=== PATIENT | male | born 1945 | race Caucasian/White ===

== ENCOUNTER 2018-01-15 09:55 | Emergency (ER) | payer MEDICARE ==
[2018-01-15 09:56] VITALS: BMI 29.0
[2018-01-15 10:09] VITALS: BP 151/85; RESP 18; O2SAT 99
--- NOTE | 2018-01-15 10:15 | ED PDOC ---
Arrival/HPI - General Chief Complaint: Allergic Reaction Time Seen by Provider: 01/15/18 10:12 Historian: Patient Past Medical History - Provider Review Nursing Documentation Reviewed: Yes - Infectious Disease Hx of Infectious Diseases: None - Cardiac Hx Hypertension: Yes - Neurological Hx Paralysis: No - Endocrine/Metabolic Hx Diabetes Mellitus Type 2: Yes - Hematological/Oncological Hx Blood Transfusions: No Hx Blood Transfusion Reaction: No - Musculoskeletal/Rheumatological Hx Musculoskeletal Disorders: Yes - Genitourinary/Gynecological Hx Prostate Problems: Yes (Bph) - Psychiatric Hx Emotional Abuse: No Hx Physical Abuse: No Hx Substance Use: No - Surgical History Other/Comment: Uvula taken out 18 years ago - Anesthesia Hx Anesthesia Reactions: No - Suicidal Assessment Feels Threatened In Home Enviroment: No Family/Social History - Physician Review Nursing Documentation Reviewed: Yes Family/Social History: Unknown Family HX Smoking Status: Former Smoker Hx Alcohol Use: No Hx Substance Use: No Allergies/Home Meds Allergies/Adverse Reactions: Allergies No Known Allergies Allergy (Verified 01/15/18 10:09) Home Medications: Home Meds Medication Instructions Recorded Confirmed Metformin HCl [Glucophage] 1,000 mg PO BID 01/03/16 01/15/18 Aspirin [Ecotrin] 81 mg PO DAILY 02/24/16 01/15/18 Furosemide [Lasix] 20 mg PO HS 02/24/16 01/15/18 Olmesartan/Amlodipin/Hcthiazid 1 each PO QAM 02/24/16 01/15/18 [Tribenzor 40-10-25 mg Tablet] Zolpidem [Ambien] 10 mg PO HS 02/24/16 01/15/18 Simvastatin [Simvastatin] 1 tab PO DAILY 02/26/16 01/15/18 Physical Exam - Physical Exam Narrative Physical Exam (Text): 01/15/18 Constitutional: No acute distress. Head: Normocephalic. Atraumatic. Eyes: PERRL. ENT: Moist mucous membranes. Neck: Supple. Cardiovascular: Regular rate. Chest: No tenderness. Respiratory: Clear to auscultation bilaterally. GI: Soft. Nontender. Nondistended. Back: No CVA tenderness. Musculoskeletal: No tenderness or swelling of extremities. Skin: No rash. Neurologic: Alert, no focal deficit. Vital Signs Reviewed: Yes Vital Signs Temp Pulse Resp BP Pulse Ox 01/15/18 10:05 98 F 82 18 151/85 H 99 Temperature: Afebrile Blood Pressure: Hypertensive Pulse: Regular Respiratory Rate: Normal Appearance: Positive for: Well-Appearing, Non-Toxic, Comfortable Pain Distress: None Mental Status: Positive for: Alert and Oriented X 3 Medical Decision Making ED Course and Treatment: 01/15/18 Impression: Plan: -- Reassess and disposition Progress Notes: - Scribe Statement The provider has reviewed the documentation as recorded by the Luisa Miller Provider Scribe Attestation: All medical record entries made by the Darianibdamon were at my direction and personally dictated by me. I have reviewed the chart and agree that the record accurately reflects my personal performance of the history, physical exam, medical decision making, and the department course for this patient. I have also personally directed, reviewed, and agree with the discharge instructions and disposition. Disposition/Present on Arrival - Present on Arrival History of DVT/PE: No History of Uncontrolled Diabetes: No Urinary Catheter: No History of Decub. Ulcer: No History Surgical Site Infection Following: None - Disposition
--- NOTE | 2018-01-15 10:25 | ED PDOC ---
Arrival/HPI - General Historian: Patient - History of Present Illness Time/Duration: < week Symptom Onset: Gradual Symptom Course: Worsening - General Chief Complaint: Allergic Reaction Time Seen by Provider: 01/15/18 10:12 - History of Present Illness Narrative History of Present Illness (Text): 01/15/18 10:24 Patient is a 72 year old male with past medical history of DM, HTN, HLD who presents to the emergency department for an allergic reaction. Patient states that he developed genital herpes 3 months ago for the first time. He was treated with acyclovir for 14 days. He completed the course however started experiencing headaches, loss of appetite and extremity swelling with that medication. His provider changed his medication to valacyclovir. He took it for two days when he started to develop hives. He stopped taking this medication 3 days ago but states that his symptoms are still persistent. Hives are located on his upper arms bilaterally and his abdomen. Hives are pruritic, denies any alleviating factors. (Kitty Duran) Past Medical History - Provider Review Nursing Documentation Reviewed: Yes - Infectious Disease Hx of Infectious Diseases: None - Cardiac Hx Hypertension: Yes - Pulmonary Hx Respiratory Disorders: No - Neurological Hx Neurological Disorder: No Hx Paralysis: No - Renal Hx Renal Disorder: No - Endocrine/Metabolic Hx Diabetes Mellitus Type 2: Yes - Hematological/Oncological Hx Blood Transfusions: No Hx Blood Transfusion Reaction: No - Musculoskeletal/Rheumatological Hx Musculoskeletal Disorders: Yes - Genitourinary/Gynecological Hx Prostate Problems: Yes (Bph) - Psychiatric Hx Emotional Abuse: No Hx Physical Abuse: No Hx Substance Use: No - Surgical History Other/Comment: Uvula taken out 18 years ago - Anesthesia Hx Anesthesia Reactions: No - Suicidal Assessment Feels Threatened In Home Enviroment: No Family/Social History - Physician Review Nursing Documentation Reviewed: Yes Family/Social History: Unknown Family HX Smoking Status: Former Smoker Hx Alcohol Use: No Hx Substance Use: No Hx Substance Use Treatment: No Allergies/Home Meds Allergies/Adverse Reactions: Allergies No Known Allergies Allergy (Verified 01/15/18 10:09) Home Medications: Home Meds Medication Instructions Recorded Confirmed Metformin HCl [Glucophage] 1,000 mg PO BID 01/03/16 01/15/18 Aspirin [Ecotrin] 81 mg PO DAILY 02/24/16 01/15/18 Furosemide [Lasix] 20 mg PO HS 02/24/16 01/15/18 Olmesartan/Amlodipin/Hcthiazid 1 each PO QAM 02/24/16 01/15/18 [Tribenzor 40-10-25 mg Tablet] Zolpidem [Ambien] 10 mg PO HS 02/24/16 01/15/18 Simvastatin [Simvastatin] 1 tab PO DAILY 02/26/16 01/15/18 Review of Systems - Review of Systems Constitutional: Normal. absent: Fevers Eyes: Normal. absent: Vision Changes ENT: Normal. absent: Hearing Changes Respiratory: Normal. absent: SOB, Cough, Wheezing Cardiovascular: Normal. absent: Chest Pain, Palpitations Gastrointestinal: absent: Normal, Abdominal Pain, Constipation, Diarrhea, Nausea , Vomiting Genitourinary Male: Normal. absent: Dysuria Musculoskeletal: Normal Skin: Rash, Pruritis Neurological: Normal. absent: Headache, Dizziness Physical Exam Vital Signs Reviewed: Yes Temperature: Afebrile Blood Pressure: Hypertensive Pulse: Regular Respiratory Rate: Normal Appearance: Positive for: Well-Appearing, Non-Toxic, Comfortable Pain Distress: None Mental Status: Positive for: Alert and Oriented X 3 - Systems Exam Head: Present: Atraumatic, Normocephalic Pupils: Present: PERRL Extroacular Muscles: Present: EOMI Mouth: Present: Moist Mucous Membranes Neck: Present: Normal Range of Motion Abdomen: Present: Normal Bowel Sounds, Other (Hives on abdomen diffusely) Genitourinary Male: Present: Other (Refused exam) Upper Extremity: Present: Other (Hives on inner aspect of both upper arms) Neurological: Present: CN II-XII Intact Skin: Present: Warm, Dry Psychiatric: Present: Alert, Oriented x 3 Vital Signs Temp Pulse Resp BP Pulse Ox 01/15/18 10:58 98.0 F 80 18 99 01/15/18 10:05 98 F 82 18 151/85 H 99 Medical Decision Making ED Course and Treatment: 01/15/18 10:45 Patient is a 72 year old male with past medical history of HTN, DM, HLD who presents with hives that developed after taking valacyclovir. Patient stopped taking the medication 3 days ago, however hives still persist. Will order Benadryl and Pepcid PO. (Kitty Duran) Seen and examined with resident. 72 year old M p/w rash. On exam, urticaria to arms and abdomen. Patient states he will see his admin assistant for follow up of his genital rash tomorrow. (Getachew Ragsdale) - Medication Orders Current Medication Orders: Discontinued Medications Diphenhydramine HCl (Benadryl) 25 mg PO ONCE ONE Stop: 01/15/18 10:38 Last Admin: 01/15/18 10:46 Dose: 25 mg Famotidine (Pepcid) 20 mg PO STAT STA Stop: 01/15/18 10:38 Last Admin: 01/15/18 10:46 Dose: 20 mg Disposition/Present on Arrival - Present on Arrival Any Indicators Present on Arrival: No History of DVT/PE: No History of Uncontrolled Diabetes: No Urinary Catheter: No History of Decub. Ulcer: No History Surgical Site Infection Following: None - Disposition Have Diagnosis and Disposition been Completed?: Yes Disposition Time: 10:50 Patient Plan: Discharge - Disposition Diagnosis: Allergic reaction Disposition: HOME/ ROUTINE Condition: GOOD Discharge Instructions (ExitCare): Drug Allergy Prescriptions: DiphenhydrAMINE [Benadryl] 25 mg PO Q6H PRN #28 cap PRN Reason: Itchiness Famotidine [Pepcid] 20 mg PO DAILY #7 tab Forms: [employer] (Maltese)
[2018-01-15 10:58] VITALS: PULSE 80; TEMP 98
== END 2018-01-15 10:58 | disposition home or self-care (01) ==
LOC: ED 09:55
DX: T78.49XA Other allergy, initial encounter (principal); X58.XXXA Exposure to other specified factors, initial encounter

== ENCOUNTER 2018-02-02 10:59 | Emergency (ER) | payer MEDICARE ==
[2018-02-02 10:59] VITALS: BMI 29.0
[2018-02-02 11:10] VITALS: RESP 16; O2SAT 96
[2018-02-02] MEDS ORDERED: DiphenhydrAMINE 12.5 mg/5 ml LIQ UD (5 ml) PO STA (11:28)
--- NOTE | 2018-02-02 11:34 | ED PDOC ---
Arrival/HPI - General Chief Complaint: Allergic Reaction Time Seen by Provider: 02/02/18 11:00 Historian: Patient - History of Present Illness Narrative History of Present Illness (Text): 02/02/18 11:27 72 year old male, whose past medical history includes diabetes and hypertension , who presents to the ED complaining of an allergic reaction. Patient notes he was being treated for the herpes virus by his research and development manager, who prescribed Acyclovir. Patient states he experienced a rash after taking the medication. Patient's research and development manager then prescribed Valacyclovir but the patient then began experiencing hives. Patient states he then visited the ED, where he was administered Benadryl and Pepcid, which showed improvement in the rash and hives. Patient states he went to his PMD, who gave MethylPREDNISalone, but the reaction worsened. Patient denies any fever, chills, SOB, chest pain, nausea, vomiting, diarrhea, back pain, neck pain, or any other complaints. PMD: Dr. Bimal Hernández Time/Duration: 1 week Symptom Onset: Gradual Symptom Course: Unchanged Activities at Onset: Light Context: Home Past Medical History - Provider Review Nursing Documentation Reviewed: Yes - Infectious Disease Hx of Infectious Diseases: None - Cardiac Hx Cardiac Disorders: Yes Hx Hypertension: Yes - Pulmonary Hx Respiratory Disorders: No - Neurological Hx Neurological Disorder: No - Renal Hx Renal Disorder: No - Endocrine/Metabolic Hx Endocrine Disorders: Yes Hx Diabetes Mellitus Type 2: Yes - Hematological/Oncological Hx Blood Transfusions: No Hx Blood Transfusion Reaction: No - Integumentary Hx Dermatological Disorder: Yes Other/Comment: RASH - Musculoskeletal/Rheumatological Hx Musculoskeletal Disorders: Yes - Gastrointestinal Hx Gastrointestinal Disorders: No - Genitourinary/Gynecological Hx Genitourinary Disorders: Yes Hx Prostate Problems: Yes (Bph) Other/Comment: GENITAL HERPES - Psychiatric Hx Psychophysiologic Disorder: No Hx Substance Use: No - Surgical History Other/Comment: Uvula taken out 18 years ago - Anesthesia Hx Anesthesia: Yes - Suicidal Assessment Feels Threatened In Home Enviroment: No Family/Social History - Physician Review Nursing Documentation Reviewed: Yes Family/Social History: Unknown Family HX Smoking Status: Former Smoker Hx Alcohol Use: No Hx Substance Use: No Hx Substance Use Treatment: No Allergies/Home Meds Allergies/Adverse Reactions: Allergies acyclovir Allergy (Verified 02/02/18 11:01) RASH Home Medications: Home Meds Medication Instructions Recorded Confirmed Metformin HCl [Glucophage] 1,000 mg PO BID 01/03/16 02/02/18 Aspirin [Ecotrin] 81 mg PO DAILY 02/24/16 02/02/18 Olmesartan/Amlodipin/Hcthiazid 1 each PO QAM 02/24/16 02/02/18 [Tribenzor 40-10-25 mg Tablet] Zolpidem [Ambien] 10 mg PO HS 02/24/16 02/02/18 Simvastatin [Simvastatin] 1 tab PO DAILY 02/26/16 02/02/18 Methylprednisolone [Medrol Dose 1 tab PO QID 02/02/18 02/02/18 Pack (21 tabs)] Review of Systems - Physician Review All systems were reviewed & negative as marked: Yes - Review of Systems Constitutional: Normal Eyes: Normal ENT: Normal Respiratory: Normal. absent: SOB, Cough Cardiovascular: Normal. absent: Chest Pain Gastrointestinal: Normal. absent: Abdominal Pain, Diarrhea, Nausea, Vomiting Genitourinary Male: Normal. absent: Dysuria, Frequency Musculoskeletal: Normal. absent: Back Pain, Neck Pain Skin: Rash Neurological: Normal. absent: Headache, Dizziness Endocrine: Normal Hemo/Lymphatic: Normal Psychiatric: Normal Physical Exam Vital Signs Reviewed: Yes Vital Signs Temp Pulse Resp BP Pulse Ox 02/02/18 11:04 98.1 F 96 H 16 157/78 H 96 Temperature: Afebrile Blood Pressure: Hypertensive Pulse: Regular Respiratory Rate: Normal Appearance: Positive for: Well-Appearing, Non-Toxic, Comfortable Pain Distress: None Mental Status: Positive for: Alert and Oriented X 3 - Systems Exam Head: Present: Atraumatic, Normocephalic Pupils: Present: PERRL Extroacular Muscles: Present: EOMI Conjunctiva: Present: Normal Mouth: Present: Moist Mucous Membranes Neck: Present: Normal Range of Motion Respiratory/Chest: Present: Clear to Auscultation, Good Air Exchange. No: Respiratory Distress, Accessory Muscle Use Cardiovascular: Present: Regular Rate and Rhythm, Normal S1, S2. No: Murmurs Abdomen: No: Tenderness, Distention, Peritoneal Signs Back: Present: Normal Inspection Upper Extremity: Present: Normal Inspection. No: Cyanosis, Edema Lower Extremity: Present: Normal Inspection. No: Edema Neurological: Present: GCS=15, CN II-XII Intact, Speech Normal Skin: Present: Warm, Dry, Rashes (urticarial rash; papulum; hives on the lower extremities, butox, and back; non-pustulure, no oral involvement) Psychiatric: Present: Alert, Oriented x 3, Normal Insight, Normal Concentration Medical Decision Making ED Course and Treatment: 02/02/18 11:38 Impression: 72 year old male presents to the ed c/o an allergic reaction. No TEN or SJS like findings. No cellulitis like findings. No airway involvement. No hx of lips tingling, throat swelling, or throat issues with medication. Pt notes he was previously on steroids and that made it worse. Given worsening w/ steroids and improvement previously w/ benadryl and pepcid- will rx with benadryl and pepcid and reassess. Pt instructed to d/c prednisone and cylovir-derivatives until seen by PMD/derm for further instruction. Plan: -- Benadryl -- Pepcid 02/02/18 12:02 Progress Notes: Reassessed. Pt notes improvement of symptoms. less itchiness and rash. Pt states that he has taken benadryl before without issue and does not feel drowsy when taking higher doses at home and driving. Clear for d/c home w/ followup and return indications. 02/02/18 12:05 - Medication Orders Current Medication Orders: Discontinued Medications Diphenhydramine HCl (Benadryl) 25 mg PO STAT STA Stop: 02/02/18 11:29 Last Admin: 02/02/18 11:55 Dose: 25 mg Famotidine (Pepcid) 20 mg PO STAT STA Stop: 02/02/18 11:29 Last Admin: 02/02/18 11:55 Dose: 20 mg - Scribe Statement The provider has reviewed the documentation as recorded by the Luisa Patrick All medical record entries made by the Darianibdamon were at my direction and personally dictated by me. I have reviewed the chart and agree that the record accurately reflects my personal performance of the history, physical exam, medical decision making, and the department course for this patient. I have also personally directed, reviewed, and agree with the discharge instructions and disposition. Disposition/Present on Arrival - Present on Arrival Any Indicators Present on Arrival: No History of DVT/PE: No History of Uncontrolled Diabetes: No Urinary Catheter: No History of Decub. Ulcer: No History Surgical Site Infection Following: None - Disposition Have Diagnosis and Disposition been Completed?: Yes Diagnosis: Allergic reaction Disposition: HOME/ ROUTINE Disposition Time: 12:02 Patient Problems: Current Active Problems Problem Status Onset Allergic reaction Acute Condition: GOOD Discharge Instructions (ExitCare): Drug Allergy Additional Instructions: NGUYEN HANSON, thank you for letting us take care of you today. Your provider was Nic Aguirre and you were treated for ALLERGIC REACTION. The emergency medical care you received today was directed at your acute symptoms. If you were prescribed any medication, please fill it and take as directed. It may take several days for your symptoms to resolve. Return to the Emergency Department if your symptoms worsen, do not improve, or if you have any other problems. Please contact your doctor or call one of the physicians/clinics you have been referred to that are listed on the Patient Visit Information form that is included in your discharge packet. Bring any paperwork you were given at discharge with you along with any medications you are taking to your follow up visit. Our treatment cannot replace ongoing medical care by a primary care provider outside of the emergency department. Thank you for allowing the [facility] team to be part of your care today. If you had an X-Ray or CT scan: A Radiologist will review the ED reading if any change in treatment is needed we will contact you. If you had a blood, urine, or wound culture: It will take several days for the results, if any change in treatment is needed we will contact you. If you had an STI test: It will take 48 hours for the results. Please call after 1 week if you have not heard back. Prescriptions: DiphenhydrAMINE [Benadryl] 25 mg PO Q6H PRN 7 Days #28 cap PRN Reason: Allergy Symptoms Famotidine [Pepcid] 20 mg PO DAILY 7 Days #7 tab Referrals: Bimal Maddox MD [Family Provider] - Follow up with primary Bao Jackson MD [Staff Provider] - Follow up with primary (Or see your own research and development manager as reffered by your primary care doctor) Forms: [employer] (Libyan)
[2018-02-02 12:32] VITALS: PULSE 86
[2018-02-02 12:33] VITALS: BP 148/67; TEMP 98.1
== END 2018-02-02 12:33 | disposition home or self-care (01) ==
LOC: ED 10:59
DX: T78.40XA Allergy, unspecified, initial encounter (principal); E11.9 Type 2 diabetes mellitus without complications; I10 Essential (primary) hypertension; Z87.891 Personal history of nicotine dependence

== ENCOUNTER 2018-03-01 10:27 | Emergency (ER) | payer MEDICARE ==
--- NOTE | 2018-03-01 11:16 | ED PDOC ---
Arrival/HPI - General Time Seen by Provider: 03/01/18 10:45 Historian: Patient - History of Present Illness Narrative History of Present Illness (Text): 03/01/18 11:08 73yo male with pmhx of hypertension, diabetes and genital herpes who present with complaint of pruritic hives. Patient states he has been seen here twice for this same symptoms after taking Acyclovir and Valacyclovir given by his Laser Beam Color Scanner Operator. States he was given Xyzal, but he stopped taking it because it wasn't helping. He denies any new medication, any new inciting factors, SOB, tongue swelling, chest pain, SOB, any other complaint. Past Medical History - Provider Review Nursing Documentation Reviewed: Yes - Infectious Disease Hx of Infectious Diseases: None - Cardiac Hx Cardiac Disorders: Yes Hx Hypertension: Yes - Pulmonary Hx Respiratory Disorders: No - Neurological Hx Neurological Disorder: No - Renal Hx Renal Disorder: No - Endocrine/Metabolic Hx Endocrine Disorders: Yes Hx Diabetes Mellitus Type 2: Yes - Hematological/Oncological Hx Blood Transfusions: No Hx Blood Transfusion Reaction: No - Integumentary Hx Dermatological Disorder: Yes Other/Comment: RASH - Musculoskeletal/Rheumatological Hx Musculoskeletal Disorders: Yes - Gastrointestinal Hx Gastrointestinal Disorders: No - Genitourinary/Gynecological Hx Genitourinary Disorders: Yes Hx Prostate Problems: Yes (Bph) Other/Comment: GENITAL HERPES - Psychiatric Hx Psychophysiologic Disorder: No Hx Substance Use: No - Surgical History Other/Comment: Uvula taken out 18 years ago - Anesthesia Hx Anesthesia: Yes - Suicidal Assessment Feels Threatened In Home Enviroment: No Family/Social History - Physician Review Nursing Documentation Reviewed: Yes Family/Social History: Unknown Family HX Smoking Status: Former Smoker Hx Alcohol Use: No Hx Substance Use: No Hx Substance Use Treatment: No Allergies/Home Meds Allergies/Adverse Reactions: Allergies acyclovir Allergy (Verified 02/02/18 11:01) RASH Home Medications: Home Meds Medication Instructions Recorded Confirmed Metformin HCl [Glucophage] 1,000 mg PO BID 01/03/16 02/02/18 Aspirin [Ecotrin] 81 mg PO DAILY 02/24/16 02/02/18 Olmesartan/Amlodipin/Hcthiazid 1 each PO QAM 02/24/16 02/02/18 [Tribenzor 40-10-25 mg Tablet] Zolpidem [Ambien] 10 mg PO HS 02/24/16 02/02/18 Simvastatin [Simvastatin] 1 tab PO DAILY 02/26/16 02/02/18 Methylprednisolone [Medrol Dose 1 tab PO QID 02/02/18 02/02/18 Pack (21 tabs)] Review of Systems - Physician Review All systems were reviewed & negative as marked: Yes - Review of Systems Constitutional: Normal Eyes: Normal ENT: Normal Respiratory: Normal Cardiovascular: Normal Gastrointestinal: Normal Genitourinary Male: Normal Musculoskeletal: Normal Skin: Rash, Pruritis Neurological: Normal Endocrine: Normal Hemo/Lymphatic: Normal Psychiatric: Normal Physical Exam Vital Signs Reviewed: Yes Temperature: Afebrile Blood Pressure: Normal Pulse: Regular Respiratory Rate: Normal Appearance: Positive for: Well-Appearing, Non-Toxic, Comfortable Pain Distress: None Mental Status: Positive for: Alert and Oriented X 3 - Systems Exam Head: Present: Atraumatic, Normocephalic Pupils: Present: PERRL Extroacular Muscles: Present: EOMI Conjunctiva: Present: Normal Mouth: Present: Moist Mucous Membranes Neck: Present: Normal Range of Motion Respiratory/Chest: Present: Clear to Auscultation, Good Air Exchange. No: Respiratory Distress, Accessory Muscle Use Cardiovascular: Present: Regular Rate and Rhythm, Normal S1, S2. No: Murmurs Abdomen: No: Tenderness, Distention, Peritoneal Signs Back: Present: Normal Inspection Upper Extremity: Present: Normal Inspection. No: Cyanosis, Edema Lower Extremity: Present: Normal Inspection. No: Edema Neurological: Present: GCS=15, CN II-XII Intact, Speech Normal Skin: Present: Warm, Dry, Rashes (Hives noted to b/l arms and face), Normal Color Psychiatric: Present: Alert, Oriented x 3, Normal Insight, Normal Concentration Medical Decision Making ED Course and Treatment: 03/01/18 12:06 73yo male in ED for pruritic hives. He was not in any distress. No drooling. No trismus. No stridor. He states that steroid worsens his allergic reaction last time. States Benadryl and Pepcid usually relieves his symptoms. he notes that he have taken Benadryl multiple times and it doesn't make him drowsy. He was given Benadryl and pepcid in ED. He denied any known inciting factors at this time. Notes that he have appointment with an resolution manager on . His hives improved in ED. He will be DC home with Benadryl and pepcid. - Medication Orders Current Medication Orders: Discontinued Medications Diphenhydramine HCl (Benadryl) 25 mg PO STAT STA Stop: 03/01/18 11:20 Last Admin: 03/01/18 11:46 Dose: 25 mg Famotidine (Pepcid) 20 mg PO STAT STA Stop: 03/01/18 11:20 Last Admin: 03/01/18 11:47 Dose: 20 mg Disposition/Present on Arrival - Present on Arrival Any Indicators Present on Arrival: No History of DVT/PE: No History of Uncontrolled Diabetes: No Urinary Catheter: No History Surgical Site Infection Following: None - Disposition Have Diagnosis and Disposition been Completed?: Yes Diagnosis: Hives Disposition: HOME/ ROUTINE Disposition Time: 12:10 Patient Plan: Discharge Condition: STABLE Discharge Instructions (ExitCare): Hives (DC) Additional Instructions: Follow up with your resolution manager Return to ED for any new or worsening symptoms Prescriptions: DiphenhydrAMINE [Benadryl] 25 mg PO Q6 #28 cap Famotidine [Pepcid] 20 mg PO DAILY #10 tab
[2018-03-01 11:19] VITALS: BMI 29.1
[2018-03-01] MEDS ORDERED: DiphenhydrAMINE 12.5 mg/5 ml LIQ UD (5 ml) PO STA (11:19)
[2018-03-01 12:45] VITALS: PULSE 80; RESP 20; TEMP 98; O2SAT 98
== END 2018-03-01 12:48 | disposition home or self-care (01) ==
LOC: ED 10:27
DX: L50.9 Urticaria, unspecified (principal); E11.9 Type 2 diabetes mellitus without complications; I10 Essential (primary) hypertension; Z87.891 Personal history of nicotine dependence